=== PATIENT | male | born 1970 | race African-American/Black ===

== ENCOUNTER 2021-01-08 01:19 | Emergency (ER) | payer MEDICARE, OTHER ==
[~2021-01-08] VITALS: Ht 175.3 cm; Wt 81.0 kg
[2021-01-08] MEDS ORDERED: LORAZEPAM 1MG TABLET PO ONE (03:30)
[2021-01-08 03:38] LABS: BASOPHILS % 1.1 % (0.0-2.0); EOSINOPHILS % 0.9 % (0.0-5.0); HEMATOCRIT. 32.3 % (42.0-52.0); HEMOGLOBIN. 10.3 g/dL (14.0-18.0); LYMPHOCYTES % 17.3 % (20.0-50.0); MEAN CORPUSCULAR HEMOGLOBIN 23.4 pg (28.0-32.0); MEAN CORPUSCULAR VOLUME 73.5 fL (80.0-94.0); MEAN PLATELET VOLUME 6.2 fl (7.4-10.4); NEUTROPHILS % 69.7 % (40.0-76.0); PLATELET 573 x1000/uL (130-400); RED BLOOD CELL COUNT 4.39 mill/uL (4.7-6.1); RED CELL DISTRIBUTION WIDTH 18.6 % (11.6-14.6)
[2021-01-08 03:43] LABS: CHLORIDE 106 mEq/L (98-107)
[2021-01-08 03:47] LABS: ETHANOL BLOOD < 10 mg/dL
[2021-01-08 05:17] LABS: CLARITY URINE CLEAR (CLEAR); COLOR URINE YELLOW (YELLOW); KETONES URINE NEGATIVE (NEGATIVE); LEUKOCYTE ESTERASE URINE NEGATIVE (NEGATIVE); NITRITE URINE NEGATIVE (NEGATIVE); OCCULT BLOOD URINE NEGATIVE (NEGATIVE); PROTEIN URINE NEGATIVE (NEGATIVE); SPECIFIC GRAVITY URINE 1.007 (1.005-1.030)
[2021-01-08 05:44] LABS: *AMPHETAMINES SCREEN URINE NEGATIVE (NEGATIVE); *COCAINE SCREEN URINE NEGATIVE (NEGATIVE); CANNABINOID URINE SCREEN NEGATIVE (NEGATIVE); METHADONE URINE SCREEN NEGATIVE (NEGATIVE); OPIATES URINE SCREEN NEGATIVE (NEGATIVE); PHENCYCLIDINE URINE SCREEN NEGATIVE (NEGATIVE)
[2021-01-08 05:45] LABS: *BARBITURATES SCREEN URINE NEGATIVE (NEGATIVE); *BENZODIAZEPINES SCREEN URINE NEGATIVE (NEGATIVE)
[2021-01-08 10:00] VITALS: BP 111/62
== END 2021-01-08 10:01 | disposition home or self-care (01) ==
LOC: ER 01:19
DX: F20.89 Other schizophrenia (principal); Z91.14 Patient's other noncompliance with medication regimen; I10 Essential (primary) hypertension; E11.9 Type 2 diabetes mellitus without complications
CPT/HCPCS: 36415; 80053; 80305; 80307; 80320; 80329; 81003; 85025; 93005; 99285; G0480

== ENCOUNTER 2021-07-20 15:39 | Emergency (ER) | payer MEDICARE, MEDICAID ==
[~2021-07-20] VITALS: Ht 175.3 cm; Wt 64.8 kg
[2021-07-20 15:44] VITALS: BP 100/63
[2021-07-20] MEDS ORDERED: LOSA25TA26 PO (15:52)
[2021-07-20] MEDS ORDERED: FISH PO (15:52)
[2021-07-20] MEDS ORDERED: SITA1TAB2 PO (15:52)
[2021-07-20] MEDS ORDERED: GLIP10TA10 PO (15:52)
[2021-07-20] MEDS ORDERED: IBUP-2029 PO (15:52)
[2021-07-20] MEDS ORDERED: OLAN20TA34 PO (15:52)
[2021-07-20] MEDS ORDERED: SIMV-46 PO (15:52)
== END 2021-07-20 18:55 | disposition left against medical advice (07) ==
LOC: ER 15:39
DX: Z53.21 Procedure and treatment not carried out due to patient leaving prior to being seen by health care provider (principal)
CPT/HCPCS: 82962